=== PATIENT | female | born 1950 | race Two or more races ===

== ENCOUNTER 2018-03-30 09:34 | Emergency (ER) | payer OTHER ==
[~2018-03-30] VITALS: Ht 160 cm; Wt 62.1 kg
[2018-03-30] MEDS ORDERED: [UNRECOGNIZED DRUG - OTHER] (10:19)
[2018-03-30] MEDS ORDERED: CONGESTI EAC (10:20)
== END 2018-03-30 13:21 | disposition home or self-care (01) ==
LOC: ER 09:34
DX: B34.9 Viral infection, unspecified (principal); J11.1 Influenza due to unidentified influenza virus with other respiratory manifestations